=== PATIENT | male | born 1955 | race Caucasian/White ===

== ENCOUNTER 2018-06-09 11:06 | Outpatient (CLI) | payer BC, SELFPAY ==
[2018-06-09 12:54] LABS: Anion Gap 11.2 mmol/L (3-11); BUN 14 mg/dL (7-18); CO2 27.8 mmol/L (21.0-32.0); CREATININE 1.31 mg/dL (0.70-1.30); Calcium 9.1 mg/dL (8.5-10.1); Chloride 104 mmol/L (98-107); Cholesterol 175 mg/dL (50-200); Estimated GFR 55.44 (mL/min/1.73m2); Glucose 108 mg/dL (70-100); HDL Cholesterol 51 mg/dL (40-60); LDL CHOLESTEROL 103 mg/dL (<100); Potassium 4.3 mmol/L (3.5-5.1); Sodium 143 mmol/L (136-145); Triglyceride 95 mg/dL (30-150)
== END 2018-06-09 11:26 ==
PROVIDERS: PCP Family Medicine; Visit Provider Family Medicine
DX: I10 Essential (primary) hypertension (principal); E78.5 Hyperlipidemia, unspecified
CPT/HCPCS: 36415; 80048; 80061; 83721

== ENCOUNTER 2019-04-03 09:00 | Outpatient (CLI) | payer BC, SELFPAY ==
[2019-04-03 11:10] LABS: Anion Gap 5.1 mmol/L (3-11); BUN 15 mg/dL (7-18); CO2 30.9 mmol/L (21.0-32.0); Chloride 104 mmol/L (98-107); Glucose 101 mg/dL (70-100); Potassium 4.1 mmol/L (3.5-5.1); Sodium 140 mmol/L (136-145)
[2019-04-03 11:31] LABS: Calcium 8.1 mg/dL (8.5-10.1)
== END 2019-04-03 09:20 ==
PROVIDERS: PCP Family Medicine; Visit Provider Family Medicine
DX: I10 Essential (primary) hypertension (principal)
CPT/HCPCS: 36415; 80048

== ENCOUNTER 2019-04-09 01:13 | Outpatient (CLI) | payer BC, SELFPAY | END 2019-04-09 01:33 | PROVIDERS: PCP Family Medicine; Visit Provider Family Medicine | DX: I48.91 Unspecified atrial fibrillation (principal) | CPT/HCPCS: 93225 ==

== ENCOUNTER 2019-04-11 12:03 | Outpatient (CLI) | payer BC, SELFPAY ==
--- NOTE | 2019-04-12 05:23 | HOLTER_ITS ---
HOLTER MONITOR DATE OF DICTATION April 11, 2019 STUDY INDICATION Atrial fibrillation. REQUESTING PROVIDER Not available. FINDINGS The patient was monitored for 1 day and 23 minutes. Baseline sinus rhythm. Average heart rate 67 beats per minute, range 50 to 98 beats per minute. Rare PVCs, 97 per day. No VT. Rare PACs, 86 per day. 3 Atrial runs, longest 6 beats, fastest 147 beats per minute. No pauses greater than 3 seconds. No higher degree heart block. No patient events. FINAL INTEPRETATION Rare atrial arrhythmias, asymptomatic. Linwood Galvez M.D. CLAUDIA/kusum T - 04/12/2019
== END 2019-04-11 12:23 ==
PROVIDERS: PCP Family Medicine; Visit Provider Family Medicine
DX: I48.91 Unspecified atrial fibrillation (principal)
CPT/HCPCS: 93226

== ENCOUNTER 2019-05-08 13:51 | Outpatient (CLI) | payer BC, SELFPAY ==
--- NOTE | 2019-05-08 13:00 | DI.RAD_ITS ---
EXAM: XR THORACIC SPINE COMPLETE INDICATION: thoracic pain M54.6. COMPARISON: CERV SP.WITH OBL OR FLEX/EXT from 03/31/2011 THORACIC SPINE from 03/31/2011 PORTABLE CHEST ONE VIEW from 04/10/2016 TECHNIQUE: 2D digital imaging was performed. FINDINGS: Is no evidence compression fracture. The alignment appears normal. There are minimal changes in th e upper to mid thoracic spine. The visualized portions of the lungs appear clear. The aorta is mild ly tortuous IMPRESSION: Mild degenerative changes.
== END 2019-05-08 14:11 ==
PROVIDERS: PCP Family Medicine; Visit Provider Family Medicine
DX: M54.6 Pain in thoracic spine (principal); M47.812 Spondylosis without myelopathy or radiculopathy, cervical region
CPT/HCPCS: 72072

== ENCOUNTER 2019-05-11 02:53 | Outpatient (CLI) | payer BC, SELFPAY ==
--- NOTE | 2019-05-29 10:50 | W.ZIOMONITOR ---
[employer] Consultant Note: The patient was monitored for a period of 12 days and 23 hours. Predominant rhythm was sinus, average heart rate 67/minute There was no atrial fibrillation There were rare atrial and ventricular ectopic beats There were 3 runs of nonsustained ventricular tachycardia, longest lasting 12 beats There were multiple runs of supraventricular tachycardia, longest 10.9 seconds There were no pauses or bradydysrhythmias Date of service: 05/29/19 Time of Service: 10:51
== END 2019-05-11 03:13 ==
PROVIDERS: PCP Family Medicine; Visit Provider Family Medicine
DX: I48.91 Unspecified atrial fibrillation (principal); I47.2 Ventricular tachycardia; I47.1 Supraventricular tachycardia
CPT/HCPCS: 0296T

== ENCOUNTER 2019-07-16 01:01 | Outpatient (CLI) | payer BC, SELFPAY ==
--- NOTE | 2019-07-16 13:30 | DI.US_ITS ---
APPROVED REPORT EXAM: Comprehensive 2D, Doppler, and color-flow Echocardiogram Patient Location: Out-Patient Plastic Cutter: Chelsie Bridges RDCS (AE) Rhythm: NSR Indications: left sided TIA G45.9 Conclusion Left Ventricle : The left ventricle is normal size. There is normal left ventricular wall thickness. Left ventricular systolic function is normal. There is normal LV segmental wall motion. LVEF is est imated to be 60-65%. The left ventricular diastolic function is normal. Right Ventricle : The right ventricle is normal size. The right ventricular systolic function appears normal. Atria : The left atrium size is normal. The right atrium size is normal. Aortic Valve : Aortic valve is trileaflet with mild sclerosis. No aortic regurgitation is present. Th ere is no aortic valvular stenosis. Mitral Valve : Trace mitral regurgitation. Mitral valve leaflets are mildly thickened. No evidence of mitral valve stenosis. Tricuspid Valve : The tricuspid valve leaflets are mildly thickened , but open well. Mild to moderate tricuspid regurgitation. Great Vessels : The IVC is mildly dilated in size, but collapses >50% with inspiration. Estimated RV SP is 35-43 mmHg. There is no cardiovascular source of thrombus visualized on these images. There is no change from prior echocardiogram dated 04/13/2016. Wall motion Left Ventricle The left ventricle is normal size. Left ventricular systolic function is normal. There is normal left ventricular wall thickness. There is normal LV segmental wall motion. The left ventricular diastolic function is normal. LVEF is estimated to be 60-65%. Right Ventricle The right ventricle is normal size. The right ventricular systolic function appears normal. Atria The left atrium size is normal. The right atrium size is normal. Aortic Valve Aortic valve is trileaflet with mild sclerosis. There is no aortic valvular stenosis. No aortic regur gitation is present. Mitral Valve Mitral valve leaflets are mildly thickened. No evidence of mitral valve stenosis. Trace mitral regurg itation. Tricuspid Valve The tricuspid valve leaflets are mildly thickened , but open well. Mild to moderate tricuspid regurgi tation. Pulmonic Valve Pulmonic valve is not well visualized. Great Vessels Aortic root is mildly dilated (3.8cm). The ascending aorta is mildly dilated (3.8cm). The IVC is mild ly dilated in size, but collapses >50% with inspiration. Estimated RVSP is 35-43 mmHg. Pericardium There is no pericardial effusion. 2D Dimensions IVSd 1.05 cm M: 0.6-1.2 LV EDV A2C 120.00 mL PWd 0.95 cm M: 0.6 - 1.2 LV EDV A4C 124.20 mL LVDd 5.15 cm M: 4.2 - 5.8 LA Volume Index A2C 29.01 mL/m2 LVDs 3.25 cm M: 2.5 - 4.0 LA Volume Index A4C 29.67 mL/m2 Aortic Root 3.80 cm M: 3.1 - 3.7 LA Volume Index Biplane 29.40 mL/m2 RA Area A4C 18.80 cm2 LA Area A4C 20.43 cm2 LVOT 2.30 cm (M/F) 1.5-2.5 LA Area A2C 20.16 cm2 Ascending Aorta 3.84 cm M: 2.6 - 3.4 EF AP4 67.15 % LVEF (Teich) 66.15 % EF AP2 67.42 % LVEF (Song's) 66.14 % M: 52 - 72 EF BP 66.14 % LV Volume 95.14 mL M: 62 - 150 LV Volume Index 43.44 mL/m2 M: 34 - 74 FS 36.70 % LV Diastology E/A Ratio 1.3 MED E' 0.11 (>0.07 m/s) LV E/e MED 8.50 (<14) LAT E' 0.11 (>0.1 m/s) LV E/e LAT 8.30 (<14) Pulm Vein s 0.77 m/s PV S/D Ratio 1.26 Pulm Vein d 0.61 m/s Pulm Vein a 0.41 m/s A-A Duration 157.47 msec Aortic Valve LVOT Area 4.30 cm2 LVOT Peak Mani. 1.10 m/s LVOT Mean Mani. 0.89 m/s LVOT Peak Gr. 5.05 mmHg CHHAYA Vmax Index 1.30 cm2/m2 LVOT Mean Gr. 3.35 mmHg LVOT VTI 0.20 m CHHAYA Mean Mani. Index 1.41 cm2/m2 AoV Peak Mani. 1.69 (0.5-1.3 m/s) AoV Mean Mani. 1.23 m/s AO Peak GR. 11.49 mmHg AO Mean GR. 6.72 (<5 mmHg) VTI Ratio 0.63 CHHAYA (VTI) 2.69 (2.5-4.5 cm2) CHHAYA (VTI) Index 1.23 cm/m2 Mitral Valve MV E Max Mani. 0.91 (0.4-1.3 m/s) MV A Velocity 0.70 (0.4-1.3 m/s) E/A Ratio 1.22 MV Decel. Time 212.10 (160-240 msec) MV PHT 61.52 msec MVA PHT 3.55 cm2 Tricuspid Valve TR P. Velocity 2.97 m/s TV Regurg Vmax 2.97 m/s RAP Estimate 8.00 mmHg RVSP 43.00 mmHg TR P. Gradient 35.15 mmHg
== END 2019-07-16 01:21 ==
PROVIDERS: PCP Family Medicine; Visit Provider Family Medicine
DX: G45.9 Transient cerebral ischemic attack, unspecified (principal); I10 Essential (primary) hypertension; I48.91 Unspecified atrial fibrillation; I36.1 Nonrheumatic tricuspid (valve) insufficiency
CPT/HCPCS: 93306

== ENCOUNTER 2020-01-29 02:44 | Outpatient (CLI) | payer BC, SELFPAY ==
[2020-01-29 11:04] LABS: TSH (W/Ref FT4) 2.01 uIU/mL (0.36-3.74); Vitamin B12 292 pg/mL (193-986)
== END 2020-01-29 03:04 ==
PROVIDERS: PCP Family Medicine; Visit Provider Psychiatry & Neurology Neurology
DX: R20.2 Paresthesia of skin (principal)
CPT/HCPCS: 36415; 82306; 82607; 84443

== ENCOUNTER 2020-07-30 02:28 | Outpatient (CLI) | payer BC, SELFPAY ==
[2020-07-30 12:47] LABS: Calculated LDL 114 mg/dL (<100); Cholesterol 199 mg/dL (<200); Glucose 98 mg/dL (74-106); HDL Cholesterol 53 mg/dL (40-60); Triglyceride 163 mg/dL (<150)
== END 2020-07-30 02:48 ==
PROVIDERS: PCP Family Medicine; Visit Provider Family Medicine
DX: E78.5 Hyperlipidemia, unspecified (principal); I10 Essential (primary) hypertension; R73.9 Hyperglycemia, unspecified
CPT/HCPCS: 36415; 80061; 82947; 82565

== ENCOUNTER 2020-08-06 04:56 | Outpatient (CLI) | payer BC, SELFPAY ==
[2020-08-06 08:16] LABS: HCT 48.3 % (40.0-50.0); MCH 28.8 pg (27.0-33.0); MCHC 33.1 % (32.0-36.0); MCV 86.9 fL (80-95); MPV 9.3 fL (8.0-11.0); Platelet Count 203 10^3/uL (130-400); RBC 5.56 10^6/uL (4.36-5.78); RDW-SD 38.7 fL; WBC 5.89 10^3/uL (4.4-10.8)
== END 2020-08-06 05:16 ==
PROVIDERS: PCP Family Medicine; Visit Provider Family Medicine
DX: D64.9 Anemia, unspecified (principal)
CPT/HCPCS: 36415; 85027

== ENCOUNTER 2020-08-15 04:24 | Outpatient (CLI) | payer BC, SELFPAY ==
--- NOTE | 2020-08-15 07:00 | DI.US_ITS ---
EXAM: US RENAL CLINICAL HISTORY: left flank pain,R10.9 TECHNIQUE: Ultrasound of both kidneys performed using standard protocol. COMPARISON: US US ECHOCARDIOGRAM from 07/16/2019 FINDINGS: RIGHT KIDNEY: Measures 11.4 cm in length. No cysts evident. Normal cortical thickness and corticomedullary differen tiation .No solid masses No intrarenal calculi nor hydronephrosis. LEFT KIDNEY: Measures 11.7 cm in length. No cysts evident. Normal cortical thickness and corticomedullary differe ntiaion. No solids masses. No intrarenal calculi nor hydonephrosis. URINARY BLADDER: Prevoid volume is 85 cc Postvoid volume is 9 cc Prostate volume= 81 cc the prostate is lobulated and partially calcified No evidence of bladder mass nor diverticuli. Ureterovesical jets: Both identified and appear symmetrical IMPRESSION: 1. No significant ultrasound findings in the kidneys. 2. Bladder findings as above. Apparently scanning of an area of clinical concern on the patient's back did not reveal subcutaneous nor muscular focal findings at this level. DATA REPOSITORY:
== END 2020-08-15 04:44 ==
PROVIDERS: PCP Family Medicine; Visit Provider Family Medicine
DX: R10.9 Unspecified abdominal pain (principal)
CPT/HCPCS: 76770

== ENCOUNTER 2020-09-22 02:17 | Outpatient (CLI) | payer BC, SELFPAY ==
--- NOTE | 2020-09-22 08:00 | DI.RAD_ITS ---
EXAM: XR LUMBAR SPINE COMPLETE CLINICAL HISTORY: rt leg pain and weakness,acute low back pain, m54.5. TECHNIQUE: 2D digital imaging was performed. COMPARISON: CR XR THORACIC SPINE COMPLETE from 05/08/2019 FINDINGS: There is no evidence of compression fracture nor osseous lesions. There is mild disc space narrowing at L2 two-three level and mild retrolisthesis of L2 upon L3. Other disc spaces exhibit normal heigh t although there is mild anterior osseous lipping at L3-4 and L1-2 evident. There are no osseous les ions. Bone density appears normal. There is some degenerative change evident in the facet joints at L3-4 level. The sacroiliac joints appear unremarkable. There is no significant scoliosis. No osse ous lesions. IMPRESSION: Degenerative disc disease as described above. DATA REPOSITORY: RADIATION DOSE DELIVERED:
== END 2020-09-22 02:18 ==
PROVIDERS: PCP Family Medicine; Visit Provider Family Medicine
DX: M54.5 Low back pain (principal); M79.604 Pain in right leg; M51.36 Other intervertebral disc degeneration, lumbar region
CPT/HCPCS: 72110

== ENCOUNTER 2020-10-14 22:19 | Outpatient (REF) | payer BC, SELFPAY ==
[2020-10-14 21:50] LABS: CREATININE 1.2 mg/dL (0.70-1.30)
== END 2020-10-14 22:20 | disposition home or self-care (01) ==
LOC: LBN 22:19
PROVIDERS: PCP Family Medicine; Visit Provider Family Medicine
DX: I10 Essential (primary) hypertension (principal)
CPT/HCPCS: 82565

== ENCOUNTER 2020-10-23 02:19 | Outpatient (CLI) | payer BC, SELFPAY ==
[2020-10-23] MEDS: Omnipaque 350 MG/ML 100 ML BTL IJ (09:10)
[2020-10-23] MEDS: Normal Saline - Diluent 50 ML VIAL IV (09:11)
[2020-10-23] MEDS: Normal Saline Flush 10 ML SYR IVP (09:20)
--- NOTE | 2020-10-23 09:21 | DI.CT_ITS ---
EXAM: CT ABDOMEN W CLINICAL HISTORY: abd pain,r10.9. TECHNIQUE: Imaging Protocol: Axial computed tomography images with coronal and sagittal reformatted images were created and reviewed CONTRAST MATERIAL: Intravenous: Omnipaque 350 Contrast volume:100 ml Oral: Yes COMPARISON: Renal ultrasound 08/15/2020 was reviewed FINDINGS: ABDOMEN: Visualized lung bases are clear. No pleural effusions. There is a moderate-sized hiatal hernia. This measures 5 cm wide by 5.5 cm AP by 7 cm craniocaudal. LIVER: There are no focal hepatic lesions nor dilatation of intrahepatic ducts. GALLBLADDER/BILIARY: No obvious gallbladder pathology. CBD is not dilated. PANCREAS: No evidence of pancreatic mass nor dilatation of the pancreatic duct. SPLEEN: Spleen size is upper-minimally prominent. The splenic and portal veins are patent. ADRENALS: There are no significant adrenal masses. KIDNEYS: Right kidney appears unremarkable. There is a nonobstructive 4 millimeter calculus at the mi dpole level of the left kidney. No hydronephrosis. No hydroureter. No solid renal masses.. ABDOMINAL AORTA: Not enlarged. However, please note the aorta was not imaged all the way down to the bifurcation. LYMPH NODES: There is no retroperitoneal nor para-aortic adenopathy. No obvious mesenteric masses. ABDOMINAL WALL/GI: No evidence of significant anterior abdominal wall hernia. No obvious bowel obstr uction. OSSEOUS: No significant osseous lesions identified in the field of view of this abdomen only study. OTHER: No evidence of subcutaneous soft tissue masses in the field of view of this study. IMPRESSION: 1. No significant subcutaneous masses in the field of view of this study, realizing that this is an a bdomen only study and that the lowermost images are at the iliac crest level. 2. There is a nonobstructive solitary 4 millimeter calculus in left kidney. No other significant dwain l findings. No hydronephrosis. 3. Hiatal hernia noted measuring 5 x 5.5 x 7 cm. 4. Spleen size is upper normal-minimally prominent. There is no ascites nor lymphadenopathy evident i n the abdomen. RADIATION DOSE DELIVERED: 532.5mGy.cm Total DLP DATA REPOSITORY: All CT scans at this facility are submitted to the National Radiology Data Registry (NRDR) Dose Index Registry (DIR) with the [employer] (ACR). RADIATION OPTIMIZATION: All CT scans at this facility use at least one of these dose optimization te chniques: automated exposure control; mA and/or kV adjustment per patient size (includes targeted exa ms where dose is matched to clinical indication); or iterative reconstruction.
== END 2020-10-23 02:39 ==
PROVIDERS: PCP Family Medicine; Visit Provider Family Medicine
DX: R10.9 Unspecified abdominal pain (principal); N20.0 Calculus of kidney; K44.9 Diaphragmatic hernia without obstruction or gangrene; R16.1 Splenomegaly, not elsewhere classified
CPT/HCPCS: 74160; J3490

== ENCOUNTER 2021-01-12 00:59 | Outpatient (CLI) | payer BC, SELFPAY ==
--- NOTE | 2021-01-12 07:14 | DI.NM_ITS ---
APPROVED REPORT Exam: Exercise Treadmill Patient Location: Out-Patient Room/Bed: Stress Nurse: Anabel Hilliard RN Ordering Provider:DOROTEO MANLEY, Contact Number: [phone] BMI: 31.93 Baseline Rhythm: Sinus Bradycardia Comment: Occasional PACs Indications: Episodes of nausea/sweating w/ SOB, chest pain Medical History Medical History: Hypertension, hyperlipidemia, prediabetes, obesity, gerd, paroxysmal Afib, VTach, TI A (2019) Cardiac Medications: Diltiazem, atorvastatin, apixaban, famotidine, magnesium oxide, spironolactone Allergies: Lisinopril Cardiac Risk Factors: Hypertension, hyperlipidemia, prediabetes, obesity, family hx Previous Cardiac Procedures: None Pretest Chest Pain Characteristics: None Exercise History: Physically active Physical Disabilities: None Lung Sounds: Clear to auscultation, Clear to auscultation Heart Sounds: Regular Stress Test Details Test: Exercise stress testing was performed using a Paolo protocol. Nuclear Acquisition: Rest Tc-99m/Stress Tc-99m 1 day Rest Isotope: Tc-99m Sestamibi. Dose: 12.0 Date: 01/12/2021 Injection Time: 0945 Stress Isotope: Tc-99m Sestamibi. Dose: 38.0 Date: 01/12/2021 Injection Time: 1123 HR Resting HR Supine: 53 bpm Max Heart Rate (APMHR): 155 bpm Resting HR Standin bpm Target HR (85% APMHR): 131 bpm Max HR Achieved: 154 bpm % of APMHR: 99 Recovery HR: 77 bpm HR response to stress: Normal HR response to stress BP Resting BP Supine: 136/80 mmHg Resting BP Standin/82 mmHg Max BP: 158/72 mmHg Recovery BP: 142/80 mmHg BP response to stress: Blunted blood pressure response to stress. ECG Resting ECG: Sinus Bradycardia Ectopy: Occasional PACs Comment: Flipped T waves lead III and V6 Stress ECG: Sinus Tachycardia ST Change: Horizontal ST depression Lead(s): II Stage: [address] Deviation: 0.5 mm Arrhythmia: Occasional PACs Recovery ECG: Sinus Rhythm Recovery ST Change: No significant ST segment changes noted Recovery Arrhythmia: PACs, multifocal PVCs, Comment: Flipped T waves lead III and V6 Clinical Reason for Termination: Fatigue Stress Symptoms: General Fatigue Exercise duration: 10 min26 sec Highest Stage Reached: Stage 4: 4.2 mph at 16% grade. Exercise capacity: 12.51 METs Rate Pressure Product: 21713 Stress ECG Conclusion 1. The patient exercised for 10 minutes (13 METS). Exercise was stopped due to fatigue. 2. Blood pressure and heart rate augmented appropriately. 3. Patient had 0.[address] depressions in lead V2 during peak exercise. He is quickly resolved. Stress Test Summary STAGE Time (mins) Speed (mph) Grade (%) HR BP SYMPTOMS METS Supine 53 136/80 Standing 59 130/82 1 3 1.7 10 90 148/78 SpO2 96% 4.6 2 6 2.5 12 110 144/78 SpO2 98% 7 3 9 3.4 14 132 10.2 4 12 4.2 16 152 12.9 1 min recovery 126 158/72 SpO2 97% 3 min recovery 81 150/74 6 min recovery 77 142/80 MPI Conclusion Ejection fraction was 56% with stress. There were no wall motion abnormalities. There is no evidence of ischemia on the imaging portion exam. This represents a normal SPECT stress test.
== END 2021-01-12 01:19 ==
PROVIDERS: PCP Family Medicine; Visit Provider Family Medicine
DX: R07.9 Chest pain, unspecified (principal); I10 Essential (primary) hypertension; R73.03 Prediabetes; I48.0 Paroxysmal atrial fibrillation; E66.9 Obesity, unspecified; E78.5 Hyperlipidemia, unspecified; Z82.49 Family history of ischemic heart disease and other diseases of the circulatory system
CPT/HCPCS: 78452; 93017

== ENCOUNTER 2021-01-14 03:27 | Outpatient (CLI) | payer BC, SELFPAY ==
[2021-01-14 08:30] LABS: ESR 2 mm/hr (0-20)
[2021-01-14 09:45] LABS: C-Reactive Protein 0.16 mg/dL (0.0-0.3)
[2021-01-15 11:09] LABS: Lyme Ab w Rflx to Lyme Confirm Negative (Negative)
== END 2021-01-14 03:28 | disposition home or self-care (01) ==
LOC: LBO 03:27
PROVIDERS: PCP Family Medicine; Visit Provider Family Medicine
DX: M79.662 Pain in left lower leg (principal); M25.59 Pain in other specified joint
CPT/HCPCS: 36415; 85652; 86140; 86618

== ENCOUNTER 2021-08-21 01:15 | Outpatient (CLI) | payer BC, MEDICARE, SELFPAY ==
--- NOTE | 2021-08-21 07:00 | DI.MRI_ITS ---
Exam(s) MR LUMBAR SPINE WO EXAM: MR LUMBAR SPINE WO CLINICAL HISTORY: persistent left sciatica, despite 6 weeks of PT,LT LEG PAIN,M79.605. TECHNIQUE: Multiplanar multisequence MRI of the Lumbar spine was performed. COMPARISON: CR XR LUMBAR SPINE COMPLETE from 09/22/[address] ABDOMEN W from 10/23/2020 FINDINGS: Bones: The last intervertebral disc space is designated the L5/S1 level for the numbering purpose of this examination. The vertebral body heights are well maintained. Alignment is satisfactory. The ma rrow signal characteristics are unremarkable. There is no disc herniation at any level. Cord: The conus tip ends at the T12 level. It is of normal size and signal intensity. T12-L1: No disc herniations or bulges are present. No central spinal canal or neural foraminal stenos is. L1-2: No disc herniations or bulges are present. No central spinal canal or neural foraminal stenosis . L2-3: Minimal disc bulging and small endplate osteophytes, eccentric toward the right.. No central s robb canal or neural foraminal stenosis. L3-4: Minimal disc bulging and small endplate osteophytes, eccentric toward the left.. No central sp inal canal stenosis.Mild neural foraminal encroachment. L4-5: No disc herniations or bulges are present. No central spinal canal or neural foraminal stenosis . L5-S1: No disc herniations or bulges are present. No central spinal canal or neural foraminal stenosi s. Soft tissues: The visualized SI joints and sacrum are well maintained. The paraspinal soft tissues ar e unremarkable. IMPRESSION: Mild degenerative disc changes at L2-3 and L3-4. Mild left neural foraminal encroachment at L3-4. DATA REPOSITORY:
== END 2021-08-21 01:35 ==
PROVIDERS: PCP Family Medicine; Visit Provider Family Medicine
DX: M79.605 Pain in left leg (principal); M54.32 Sciatica, left side; M51.16 Intervertebral disc disorders with radiculopathy, lumbar region
CPT/HCPCS: 72148

== ENCOUNTER 2021-08-21 01:59 | Outpatient (CLI) | payer BC, SELFPAY ==
[2021-08-21 11:35] LABS: Anion Gap 9.2 mmol/L (3-11); BUN 18 mg/dL (7-18); CO2 28.8 mmol/L (21.0-32.0); CREATININE 1.2 mg/dL (0.70-1.30); Calcium 8.8 mg/dL (8.5-10.1); Calculated LDL 86 mg/dL (<100); Chloride 100 mmol/L (98-107); Cholesterol 161 mg/dL (<200); Glucose 97 mg/dL (74-106); HDL Cholesterol 56 mg/dL (40-60); Potassium 4.3 mmol/L (3.5-5.1); Sodium 138 mmol/L (136-145); Triglyceride 95 mg/dL (<150); Vitamin B12 1183 pg/mL (193-986)
[2021-08-24 05:31] LABS: Vitamin D 25 Total 41.1 ng/mL (30-100)
== END 2021-08-21 02:00 | disposition home or self-care (01) ==
LOC: LBO 01:59
PROVIDERS: PCP Family Medicine; Visit Provider Family Medicine
DX: E78.5 Hyperlipidemia, unspecified (principal); G40.909 Epilepsy, unspecified, not intractable, without status epilepticus; D64.9 Anemia, unspecified; E87.1 Hypo-osmolality and hyponatremia
CPT/HCPCS: 36415; 80048; 80061; 82306; 82607

== ENCOUNTER 2021-10-21 01:20 | Outpatient (CLI) | payer BC, SELFPAY ==
--- NOTE | 2021-10-21 | DI.US_ITS ---
Exam(s) US PAIN CLINIC NEEDLE GUIDANCE EXAM: PIRIFORMIS SYNDROME OF LT SIDE COMPARISON: US US RENAL from 08/15/2020 TECHNIQUE: Ultrasound performed using standard protocol. FINDINGS: Ultrasound guidance was provided during therapeutic injection the left piriformis muscle. Radiologis t was not present for procedure. IMPRESSION: DATA REPOSITORY:
[2021-10-21 10:45] VITALS: BP 127/80; PULSE 71; RESP 18; TEMP 36.6; O2SAT 97
--- NOTE | 2021-10-21 11:23 | PDOC.PAIN_ITS ---
Pain Clinic Procedure Note Procedure Note Procedure Note: ULTRASOUND GUIDED /LEFT PIRIFORMIS MUSCLE TRIGGER POINT INJECTION Pre-Procedural Evaluation: Curt Hernandez has been referred to the [facility] for an Ultrasound Guided left Piriformis muscle trigger point injection for a chief com plaint of left buttock and left leg pain. Pre-procedure Pain Score: 3/10 Patient was interviewed and the medical record reviewed. There were no medical, pharmacologic, radiographic, or other structural contraindications to preforming an ultrasound guided injection. Risks and expected side effects as well as potential benefits of the procedure were reviewed. The patient consent form was signed and witnessed. Standard time-out procedure was performed. The use of direct ultrasound visualization of the needle (rather than a non- guided injection) was required to increase patient safety by excluding inadvertent intramuscular, intratendinous, or intraneural needle placement and minimizing bleeding by avoiding osteochondral or vascular injury from the needle. Additionally, the increased accuracy of placement may increase clinical effectiveness and will allow higher diagnostic specificity when evaluating effectiveness of this injection. Procedure Description: The patient was placed in the PRONE position and automated blood pressure cuff and pulse oximeter applied for monitoring during the procedure and recorded in the medical record. Pre-injection ultrasound scanning of the area of interest was performed using linear transducer, identifying relevant anatomy, landmarks, and neurovascular structures allowing for optimal needle path. The site was then prepared in the usual sterile fashion, using thorough Chlorhexadine preparation of the skin and sterile draping. The same ultrasound transducer was then passed into the sterile field using sterile probe cover and sterile ultrasound gel. The injection target was again visualized. Skin and subcutaneous tissues were anesthetized with 2 mL of 1% Lidocaine. A 21G 3.5 Pajunk Ultrasound needle was placed under live ultrasound guidance, using an in-plane approach, to the target area. After visualization of the needle tip at the target area, 1.5 cc of Dexamethasone (10 mg/cc) was delivered after negative aspiration for blood. This was followed by 4 cc of Lidocaine (2%). Ultrasound images were captured and stored for documentation purposes. Post-procedure Pain Score:3/10 Vital signs were stable throughout the procedure and were as recorded in the docflowsheet by the nursing staff. Follow up plans and appointments were discussed with the patient.Post procedure instruction was given as documented in nursing documentation and having met discharge criteria, they were discharged from the [facility]. COMMENTS: I gave him handouts on piriformis stretching exercises. He will start this today and not start the strengthening exercises until he pain is much reduced. Landen Self DO, MPH [facility]
[2021-10-21 11:42] VITALS: PULSE 70; O2SAT 98
[2021-10-21] MEDS: Dexamethasone Sod. Phos./Pres-Free 10 MG/ML VIAL IJ (11:43)
[2021-10-21] MEDS: Lidocaine 2% Pres-Free 5 ML VIAL IJ (11:43)
== END 2021-10-21 01:40 ==
PROVIDERS: PCP Family Medicine; Visit Provider Preventive Medicine Occupational Medicine
DX: G57.02 Lesion of sciatic nerve, left lower limb (principal)
CPT/HCPCS: 20552; 76942

== ENCOUNTER 2022-01-03 20:23 | Emergency (ER) | payer BC, MEDICARE, SELFPAY ==
[2022-01-03 20:27] VITALS: BP 149/91; PULSE 82; RESP 16; TEMP 36.5; O2SAT 10
--- NOTE | 2022-01-03 20:30 | DI.CT_ITS ---
Exam(s) CT ABDOMEN PELVIS W EXAM: CT ABDOMEN PELVIS W CLINICAL HISTORY: left flank pain. TECHNIQUE: Imaging Protocol: Axial computed tomography images with coronal and sagittal reformatted images were created and reviewed CONTRAST MATERIAL: 100 cc Visipaque 320 IV. No oral contrast. COMPARISON: CT CT ABDOMEN W from 10/23/2020 FINDINGS: ABDOMEN: Lung Bases: Lungs clear. Stable appearance of hiatal hernia with prior fundoplication. Liver: Normal density. No measurable mass. Gallbladder and biliary tract: No radiodense calculus or dilation. Pancreas: Normal density, no abnormal calcifications or inflammatory process. Spleen: Normal. Kidneys: Normal size, contour and axis. Mild left hydronephrosis secondary to a 5 millimeter stone in the upper ureter. Additional 2 millimeter nonobstructing stone near the lower pole. No right sided calculi. No masses seen. Adrenal glands: No masses seen. Abdominal Aorta: Abdominal portion non-dilated. PELVIS: Bladder: No gross wall thickening. No calculi.No focal mass. Bowel: Diverticulosis sigmoid. No diverticulitis. No small bowel or gastric distension. No obstruc tion or bowel wall thickening. Appendix normal. Peritoneal cavity: No ascites, collection or mesenteric inflammatory response. . Bones: Within normal limits for age. Reproductive organs: Mildly enlarged prostate. Lymph nodes: Unremarkable. Impression: Mild left hydronephrosis secondary to a 5 millimeter stone in the upper left ureter. Additional 2 mi llimeter nonobstructing stone lower pole left kidney. RADIATION DOSE DELIVERED: 546.4 mGy.cm Total DLP DATA REPOSITORY: All CT scans at this facility are submitted to the National Radiology Data Registry (NRDR) Dose Index Registry (DIR) with the [employer] (ACR). RADIATION OPTIMIZATION: All CT scans at this facility use at least one of these dose optimization te chniques: automated exposure control; mA and/or kV adjustment per patient size (includes targeted exa ms where dose is matched to clinical indication); or iterative reconstruction.
[2022-01-03 20:42] LABS: Bilirubin Negative (Negative); Blood Large (Negative); Clarity Cloudy (Clear); Glucose Negative (Negative); Ketones Negative (Negative); Leukocyte Esterase Negative (Negative); Nitrite Negative (Negative); Specific Gravity >= 1.030 (1.005-1.025); Urobilinogen 0.2 EU/dL (Up TO 0.2); pH 5.5 (5-8)
[2022-01-03] MEDS: Tamsulosin 0.4 MG CAPCR PO (20:45)
[2022-01-03] MEDS: Ondansetron 4 MG/2 ML VIAL IVP (20:46)
[2022-01-03] MEDS: HYDROmorphone 2 MG/ML VIAL 1 MG IVP ×2 (20:46→21:49)
[2022-01-03 20:54] LABS: RBC >50 HPF (0-2)
[2022-01-03 20:55] LABS: C & S Indicated? Yes
[2022-01-03 20:56] LABS: Abs Immature Grans 0.02 10^3/uL (0.0-0.06); Absolute Basophil Count 0.06 10^3/uL (0.0-0.2); Absolute Eosinophil Count 0.01 10^3/uL (0.0-0.7); Absolute Lymphocyte Count 1.83 10^3/uL (1.2-3.4); Absolute Monocyte Count 0.89 10^3/uL (0.1-0.8); Absolute Neutrophil Count 5.63 10^3/uL (1.2-6.7); Basophils % 0.7; Eosinophils % 0.1; HCT 43.6 % (40.0-50.0); HGB 14.9 g/dL (13.5-17.5); Immature Grans % 0.2; Lymphocytes % 21.7; MCH 29.6 pg (27.0-33.0); MCHC 34.2 % (32.0-36.0); MCV 87 fL (80-95); MPV 9.4 fL (8.0-11.0); Monocytes % 10.5; Neutrophils % 66.8; Platelet Count 246 10^3/uL (130-400); RBC 5.03 10^6/uL (4.36-5.78); RDW 12.2 % (11.8-14.1); RDW-SD 38.8 fL; WBC 8.44 10^3/uL (4.4-10.8)
[2022-01-03 21:12] LABS: ALT 48 U/L (16-63); AST 41 U/L (15-37); Albumin 3.9 g/dL (3.4-5.0); Alkaline Phosphatase 148 U/L (46-116); Anion Gap 9.3 mmol/L (3-11); BUN 21 mg/dL (7-18); Bilirubin, Total 0.5 mg/dL (0.2-1.0); CO2 25.7 mmol/L (21.0-32.0); CREATININE 1.5 mg/dL (0.70-1.30); Calcium 9.2 mg/dL (8.5-10.1); Chloride 101 mmol/L (98-107); Estimated GFR 46.82 (mL/min/1.73m2); Glucose 116 mg/dL (74-106); Lipase 137 U/L (73-393); Potassium 4.5 mmol/L (3.5-5.1); Sodium 136 mmol/L (136-145); Total Protein 7.4 g/dL (6.4-8.2)
[2022-01-03] MEDS: Normal Saline Flush 10 ML SYR IVP (21:30)
--- NOTE | 2022-01-03 21:42 | W.ED.GENAD ---
Discharge Plan Discharge Details Chief Complaint: FlankPain Primary Care Provider: Sergey Menjivar ED Provider: Carmella Almanzar Home Meds and New Rx's Prescriptions: New hydromorphone [Dilaudid] 2 mg tablet 2 mg PO Q4H PRNQty: 7 0RF tamsulosin [Flomax] 0.4 mg capsule 0.4 mg PO DAILY Qty: 6 0RF metoclopramide HCl [Reglan] 10 mg tablet 10 mg PO Q6H PRNQty: 7 0RF Continued magnesium oxide 500 mg tablet 500 mg PO DAILY cholecalciferol (vitamin D3) [Vitamin D3] 50 mcg (2,000 unit) tablet 50 mcg PO DAILY famotidine 20 mg tablet 20 mg PO BID PRN Label Comments: Pt reports no longer taking 10/21/21 spironolactone [Aldactone] 50 mg tablet 50 mg PO DAILY Qty: 90 3RF atorvastatin 20 mg tablet 20 mg PO QPM Qty: 90 3RF diltiazem HCl 120 mg capsule,extended release 24hr 120 mg PO DAILY Qty: 90 3RF diltiazem HCl 120 mg tablet 120 mg PO TID PRN (Reason: afib) Qty: 30 2RF Rx Instructions: Take for atrial fibrillation with heart rate greater than 130 acetaminophen [Mapap Extra Strength] 500 MG tablet 1 tab PO PRN PRN Held gabapentin 300 mg capsule 300 mg PO BID Qty: 60 5RF Hold Instructions: Resume on 01/06/22. Rx Instructions: dose increase 08/27/21 Discontinued tramadol 50 mg tablet 50 mg PO Q8H MDD 3 tabs PRN (Reason: flank pain) Qty: 10 0RF No Action Eliquis 5 mg tablet 5 mg PO BID Qty: 180 0RF Discharge Instructions Additional Instructions: Take Reglan as needed for nausea and vomiting Have given you a prescription for Zofran prescription for tonight which you can take for nausea and vomiting Take the Dilaudid as needed for pain This medication is very addictive and you should not drive for 8 hours after taking an Use caution while taking this medication but I do recommend you using it for pain control over the course of the next 24 to 48 hours Use Flomax daily, you received a dose this evening Strain your urine Increase your fluid hydration Follow-up with the urologist listed below Return with fever, chills, or should he have new or worsening complaints Skip your Neurontin for the next several days while you are taking the Dilaudid Referrals: Yury Saenz MD [ [facility]AFF PHYSICIAN] - Sergey Menjivar MD [Primary Care Provider] - Discharge Data Discharge Date/Time-TO BE ENTERED AT DEPARTURE: 01/03/22 23:28 Medical Decision Making Patient appears symptomatically improved CT scan shows obstructive uropathy on labs without evidence of secondary infection, afebrile Given strainer, Dilaudid for home Referral to urology Evidence of herniation of Marcia fundoplication, prior history of hiatal hernia This does not appear to be grossly changed patient is not symptomatic with this. Referred back to his surgeon Return precautions discussed and patient expressed understanding HPI General Date/Time Provider Initiated Documentation: 01/03/22 20:25. HPI Narrative: 66-year-old gentleman with a history of A. fib, anticoagulated on Eliquis presents with report of left flank pain started on Tuesday. Its been intermittent. He has had nausea without vomiting. States he has a history of kidney stones, he states this feels differently. He states the pain radiated from his left flank into his groin. He denies any fever or chills. The pain escalated again this evening approximately an hour prior to arrival. He took 3 Tylenol prior to assessment. He denies any additional complaints at this time. Denies known exacerbating or alleviating factors. States the pain is sharp. Denies any chest pain or shortness of breath. Related Data Home Medications Medication Instructions Recorded Confirmed acetaminophen 500 mg tablet (Mapap 1 tab PO PRN PRN 08/07/14 01/06/22 Extra Strength) famotidine 20 mg tablet 20 mg PO BID PRN 06/22/19 01/06/22 cholecalciferol (vitamin D3) 50 50 mcg PO DAILY 02/20/20 01/06/22 mcg (2,000 unit) tablet (Vitamin D3) magnesium oxide 500 mg tablet 500 mg PO DAILY 02/20/20 01/06/22 atorvastatin 20 mg tablet 20 mg PO QPM #90 tabs 11/10/20 01/06/22 diltiazem HCl 120 mg 120 mg PO DAILY Atrial fib #90 caps 04/07/21 01/06/22 capsule,extended release 24 hr gabapentin 300 mg capsule 300 mg PO BID #60 caps 08/27/21 01/06/22 diltiazem HCl 120 mg tablet 120 mg PO TID PRN afib #30 tab-caps 22 01/06/22 spironolactone 50 mg tablet 50 mg PO DAILY #90 tabs 11/03/21 01/06/22 (Aldactone) hydromorphone 2 mg tablet 2 mg PO Q4H PRN #7 tabs 01/03/22 01/06/22 (Dilaudid) metoclopramide HCl 10 mg tablet 10 mg PO Q6H PRN #7 tabs 01/03/22 01/06/22 (Reglan) tamsulosin 0.4 mg capsule (Flomax) 0.4 mg PO DAILY #6 caps 01/03/22 01/06/22 apixaban 5 mg tablet (Eliquis) 5 mg PO BID #180 tabs 01/05/22 01/06/22 Previous Rx's Medication Instructions Recorded atorvastatin 20 mg tablet 20 mg PO QPM #90 tabs 11/10/20 diltiazem HCl 120 mg 120 mg PO DAILY Atrial fib #90 caps 04/07/21 capsule,extended release 24 hr gabapentin 300 mg capsule 300 mg PO BID #60 caps 08/27/21 diltiazem HCl 120 mg tablet 120 mg PO TID PRN afib #30 tab-caps 10/22/21 spironolactone 50 mg tablet 50 mg PO DAILY #90 tabs 11/03/21 (Aldactone) hydromorphone 2 mg tablet 2 mg PO Q4H PRN #7 tabs 01/03/22 (Dilaudid) metoclopramide HCl 10 mg tablet 10 mg PO Q6H PRN #7 tabs 01/03/22 (Reglan) tamsulosin 0.4 mg capsule (Flomax) 0.4 mg PO DAILY #6 caps 01/03/22 apixaban 5 mg tablet (Eliquis) 5 mg PO BID #180 tabs 01/05/22 Allergies Allergy/AdvReac Type Severity Reaction Status Date / Time lisinopril AdvReac Intermediate COUGH Verified 01/03/22 20:31 General Stated Complaint: FlankPain GERARDO: 3 Review of Systems All systems reviewed & are unremarkable except as noted in HPI and below PFSH All Active Problems (Updated 01/07/22 @ 05:31 by Sergey Menjivar MD) Abnormal LFTs (Acute) Piriformis syndrome of left side (Acute) Diaphoresis (Acute) Arthralgia (Acute) Left leg pain (Acute) Left sided abdominal pain (Acute) Low back pain (Acute) Left flank pain (Acute) Paresthesias (Acute) Essential hypertension (Chronic) Generalized osteoarthrosis (Chronic) DJD-C spine; Gastroesophageal reflux disease (Chronic) Hyperlipidemia (Chronic) Obesity (Chronic) Paroxysmal atrial fibrillation (Chronic 04/16/16) Status post Marcia fundoplication (Acute) History of hemorrhoidectomy (Acute) and repair of anal fissure TIA (transient ischemic attack) (Acute) Left facial and left distal leg numbness and weakness lasting about 30 minutes Thoracic back pain (Acute) Pre-diabetes (Acute) Ventricular tachycardia (Chronic) Left lumbar radiculopathy (Acute) Atrial fibrillation with rapid ventricular response (Acute 03/25/00) Varicose veins of lower extremity (Chronic) Peripheral neuralgia (Chronic) Disorder characterized by back pain (Chronic) Family History Mother Uterine cancer Father , AGE 67 Essential hypertension Heart disease Hyperlipidemia Brother No problems noted. Maternal Grandfather , AGE 89 No problems noted. Paternal Grandfather , AGE 61 Heart disease Maternal Grandmother , AGE 93 No problems noted. Paternal Grandmother , AGE 61 Heart disease Stroke Brother Essential hypertension Heart disease STENT Brother Essential hypertension Hyperlipidemia Son No problems noted. Son No problems noted. Daughter No problems noted. 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 Pets and animals: Yes Pets and animals: cat(s) Sexually active: Yes Do you think of yourself as: straight/heterosexual Current gender identity: male What is your relationship status?: How often do you talk on the phone with friends or family?: three or more times per week How often do you get together with friends or relatives?: once per week How often do you attend sikhism or scientologist services?: 4 or more times per year Do you belong to any clubs or organized social groups?: yes Panel score (0-1 are the most socially isolated patients): 4 What type of physical activity do you participate in: walking Duration: 60-90 minutes/day Frequency: 5-6 times per week Rosemary/Presybeterian: Baptism Special rosemary needs: No Seatbelt use: always Helmet use: Yes Helmet use: always Drive intox or ride w/intox city route driver: No Do you feel safe at home: Yes Do you feel safe in your relationship?: Yes Exam Const General: cooperative and acute distress Eyes Sclera: sclerae normal Chest Chest: normal inspection of the chest Resp Effort & Inspection: normal respiratory effort Cardio Rate: regular rate Rhythm: regular rhythm Other: Distal pulses intact GI Other: Left flank tenderness, no abdominal bruit or pulsatile mass Skin General skin exam: no rashes or lesions noted Neuro General: patient alert and patient oriented x3 Extrem General: normal to inspection Other: Distal pulses intact Course Vital Signs Vital signs: Vital Signs Temperature 36.5 C 01/03/22 20:27 Pulse 82 01/03/22 20:27 Respiratory Rate 16 01/03/22 20:27 Blood Pressure 149/91 H 01/03/22 20:27 Pulse Oximetry 10 L 01/03/22 20:27 Temperature 36.5 C 01/03/22 20:27 Pulse 82 01/03/22 20:27 Respiratory Rate 16 01/03/22 20:27 Respiratory Effort Non-Labored 01/03/22 20:33 Blood Pressure 149/91 H 01/03/22 20:27 Pulse Oximetry 10 L 01/03/22 20:27 Pain Level 10 01/03/22 20:46 Lab/Test Results Lab/Test Results: 01/03/22 20:25 Urine - Reflex from Ua Urine Culture - Pending Laboratory Tests Range/Units 01/03/22 01/03/22 01/03/22 20:25 20:49 20:49 WBC (4.4-10.8) 10^3/uL 8.44 RBC (4.36-5.78) 10^6/uL 5.03 Hgb (13.5-17.5) g/dL 14.9 Hct (40.0-50.0) % 43.6 MCV (80-95) fL 87 MCH (27.0-33.0) pg 29.6 MCHC (32.0-36.0) % 34.2 RDW (11.8-14.1) % 12.2 Plt Count (130-400) 10^3/uL 246 MPV (8.0-11.0) fL 9.4 Immature Gran % 0.2 Neutrophils % 66.8 Lymphocytes % 21.7 Monocytes % 10.5 Eosinophils % 0.1 Basophils % 0.7 Nucleated RBC % (0.0-0.3) % 0.0 Absolute Neutrophils (1.2-6.7) 10^3/uL 5.63 Absolute Lymphocytes (1.2-3.4) 10^3/uL 1.83 Absolute Monocytes (0.1-0.8) 10^3/uL 0.89 H Absolute Eosinophils (0.0-0.7) 10^3/uL 0.01 Absolute Basophils (0.0-0.2) 10^3/uL 0.06 Sodium (136-145) mmol/L 136 Potassium (3.5-5.1) mmol/L 4.5 Chloride (98-107) mmol/L 101 Carbon Dioxide (21.0-32.0) mmol/L 25.7 Anion Gap (3-11) mmol/L 9.3 BUN (7-18) mg/dL 21 H Creatinine (0.70-1.30) mg/dL 1.5 H Estimated GFR/1.73 m2 (mL/min/1.73m2) 46.82 Glucose (74-106) mg/dL 116 H Calcium (8.5-10.1) mg/dL 9.2 Total Bilirubin (0.2-1.0) mg/dL 0.5 AST (15-37) U/L 41 H ALT (16-63) U/L 48 Alkaline Phosphatase (46-116) U/L 148 H Total Protein (6.4-8.2) g/dL 7.4 Albumin (3.4-5.0) g/dL 3.9 Lipase (73-393) U/L 137 Urine Color (Yellow) Yellow Urine Clarity (Clear) Cloudy Urine pH (5-8) 5.5 Ur Specific [place] (1.005-1.025) >= 1.030 H Urine Protein (Negative) mg/dL 30 H Urine Ketones (Negative) mg/dL Negative Urine Blood (Negative) Large H Urine Nitrite (Negative) Negative Urine Bilirubin (Negative) Negative Urine Urobilinogen (Up TO 0.2) EU/dL 0.2 Ur Leukocyte Esterase (Negative) Negative Urine RBC (0-2) HPF >50 H Urine WBC (0-5) HPF Ur Epithelial Cells Not Applicable Urine Crystals Not Applicable Urine Bacteria (Negative) HPF Urine Mucus Not Applicable Urine Other (Negative) Ur Culture Indicated? Yes Urine Glucose (Negative) mg/dL Negative
[2022-01-03 21:50] VITALS: BP 159/83; PULSE 61; RESP 16; O2SAT 95
--- NOTE | 2022-01-03 22:13 | DI.VRAD_ITS ---
PROCEDURE INFORMATION: Exam: CT Abdomen And Pelvis With Contrast Exam date and time: 01/03/2022 8:53 PM Age: 66 years old Clinical indication: Prior surgery; Surgery date: 6+ months; Surgery type: Marcia procedure; Patient HX: L flank pain, intermittent TECHNIQUE: Imaging protocol: Computed tomography of the abdomen and pelvis with contrast. Radiation optimization: All CT scans at this facility use at least one of these dose optimization techniques: automated exposure control; mA and/or kV adjustment per patient size (includes targeted exams where dose is matched to clinical indication); or iterative reconstruction. Contrast material: VISIPAQUE 320; Contrast volume: 100 ml; Contrast route: INTRAVENOUS (IV); COMPARISON: CT ABDOMEN W 10/23/2020 9:20 AM FINDINGS: Lungs: Lung bases clear. Liver: Possible fatty infiltration of the liver, difficult to confidently diagnose by CT imaging after administration of intravenous contrast. Gallbladder and bile ducts: Normal appearing gallbladder. No calcified gallstones. No biliary dilatation. Pancreas: Normal appearing pancreas. Spleen: Normal appearing spleen. Adrenal glands: Normal appearing adrenal glands. Kidneys and ureters: 3 mm x 4 mm obstructing stone in the proximal left ureter with upstream ureterectasis and moderate hydronephrosis. 2 mm x 2 mm nonobstructing left renal calculus, best demonstrated by the coronal series. Normal-appearing right kidney. No right-sided hydronephrosis. Stomach and bowel: Prior Marcia fundoplication. 5.2 cm x 4.2 cm hiatal hernia with herniation of the Marcia wrap above the diaphragmatic hiatus. No oral contrast. Stomach partially decompressed. No small bowel dilatation to suggest obstruction. Scattered colonic diverticula through the distal descending and sigmoid colon. No evidence of diverticulitis or colitis. Appendix: Normal appendix. Intraperitoneal space: No gross ascites or free air. Vasculature: Normal caliber abdominal aorta. Lymph nodes: No pathologically enlarged mesenteric, retroperitoneal, or pelvic sidewall lymph nodes. Urinary bladder: Normal appearing urinary bladder. Reproductive: Mildly enlarged prostate gland, 3.9 cm x 5.2 cm maximum axial dimension. Normal-appearing seminal vesicles. Bones/joints: No acute fracture seen among the bones of the abdomen or pelvis. Soft tissues: Tiny fat-containing ventral hernia at the umbilicus, doubtful clinical significance. IMPRESSION: 1. 3 mm x 4 mm obstructing proximal left ureteral calculus. 2. 2 mm x 2 mm nonobstructing left renal calculus. 3. Prior Marcia fundoplication. 5.2 cm x 4.2 cm hiatal hernia with the Marcia wrap herniated completely above the diaphragm. 4. Possible fatty infiltration of the liver, difficult to confidently diagnose by CT imaging after administration of intravenous contrast. Dictated and Authenticated by: Rl Craven MD. Ordering:PALAK Weir MD
[2022-01-03 22:29] VITALS: BP 152/84; PULSE 64; O2SAT 96
--- NOTE | 2022-01-03 22:52 | NUR.NOTE ---
Referral faxed to Dr Saenz for f/u of obstructing kidney stone.Nursing Note:
[2022-01-03] MEDS: HYDROmorphone 2 MG TAB 4 MG PO (23:02)
[2022-01-03] MEDS: Ondansetron O.D.T. 4 MG TABEF, 3 TABS/BTL PO (23:02)
== END 2022-01-03 23:28 ==
LOC: ER 20:36
PROVIDERS: Emergency Provider Physician Assistant; PCP Family Medicine
DX: R10.9 Unspecified abdominal pain (principal); R11.2 Nausea with vomiting, unspecified; Z87.442 Personal history of urinary calculi; I10 Essential (primary) hypertension
CPT/HCPCS: 80053; 83690; 96374; 96375; 96376; 99285; 74177; 81003; 81015; 85025; 87086; 99284; J2405

== ENCOUNTER 2022-03-16 07:41 | Outpatient (CLI) | payer BC, MEDICARE, SELFPAY ==
--- NOTE | 2022-03-16 06:00 | DI.RAD_ITS ---
Exam(s) XR PAIN CLINIC FLUORO JOINT IN EXAM: XR PAIN CLINIC FLUORO JOINT IN CLINICAL HISTORY: Dx: Ischial bursitis of left side TECHNIQUE: 2D and realtime digital imaging was performed. Radiologist not present. CONTRAST MATERIAL: None. COMPARISON: No exams were available for comparison FINDINGS: Fluoroscopy was provided for pain management therapy. Please refer to procedure report or details. Cumulative dose: Ka,r=4.43 mGy IMPRESSION: RADIATION DOSE DELIVERED:
[2022-03-16 07:57] VITALS: BP 133/84; PULSE 60; RESP 20; TEMP 36.7; O2SAT 97
[2022-03-16 08:36] VITALS: BP 129/73; PULSE 59; RESP 16; O2SAT 98
[2022-03-16] MEDS: methylPREDNISolone ACETATE 40 MG/ML VIAL IJ (08:46)
[2022-03-16] MEDS: Omnipaque 240 MG/ML 50 ML BTL IJ (08:47)
--- NOTE | 2022-03-16 10:57 | PDOC.PAIN_ITS ---
Pain Clinic Procedure Note Procedure Note Procedure Note: ISCHIOGLUTEAL BURSA INJECTION Curt Hernandez has been referred to the [facility] for an Ischiogluteal bursa injection. COMMENTS: He was previously evaluated in our clinic. His pre-procedure pain VAS was 5/10. Dx: Left Ischiogluteal bursitis Patient was interviewed and the medical record reviewed. There were no medical, pharmacologic, radiographic or other structural contraindications to attempting fluoroscopically guided right ischiogluteal bursa injection. Risks and expected side effects as well as potential benefit of the procedure were reviewed and voiced concerns addressed. The printed consent form was signed and witnessed. Standard time-out procedure was performed. Patient was placed in the prone position on the fluoroscopy table and automated blood pressure cuff and pulse oximeter applied. The skin entry point for approaching left ischiogluteal bursas was identified under the most advantageous fluoroscopic view and marked. Following thorough Chlorhexadine preparation of the skin and draping and 1% lidocaine infiltration of the skin entry point and subcutaneous tissues, a 22 gauge 3.5 spinal needle was placed under fluoroscopic guidance into the left ischiogluteal bursa was identified under the most advantageous fluoroscopic view and marked. Intra-bursal placement was confirmed by a clear bursogram resulting from the injection of 0.25ml Omnipaque 240, 1ml 1% lidocaine, and 40mg Depomedrol were injected into the bursa with an initial reproduction of a significant component of the usual pain. Vital signs were stable throughout the procedure and were as recorded in the docflowsheet by the nursing staff. If given, dosages of intravenous drugs for anxiolysis and analgesia were documented in MAR. Follow up plans and appointments were discussed with the patient. Post procedure instruction was given as documented in nursing documentation and having met discharge criteria, and was discharged from the [facility] Management [facility]. COMMENTS: Post-procedure pain was 0/10. He should begin easy stretching of the hamstring muscles. Landen Self DO, MPH [facility]Pain Management [facility] CC: Sergey Menjivar MD
== END 2022-03-16 07:42 | disposition home or self-care (01) ==
LOC: PC 07:42
PROVIDERS: PCP Family Medicine; Visit Provider Preventive Medicine Occupational Medicine
DX: M70.72 Other bursitis of hip, left hip (principal)
CPT/HCPCS: 20610; 77002; J1030; Q9967

== ENCOUNTER 2022-04-17 22:22 | Emergency (ER) | payer BC, SELFPAY ==
[2022-04-17 22:29] VITALS: BP 146/87; PULSE 78; RESP 16; TEMP 36.3; O2SAT 96
--- NOTE | 2022-04-17 22:45 | DI.CT_ITS ---
Exam(s) CT HEAD WO EXAM: CT HEAD WO CLINICAL HISTORY: head injury, anticoagulated. TECHNIQUE: Imaging Protocol: Axial computed tomography images with coronal and sagittal reformatted images were created and reviewed COMPARISON: CT CTA HEAD from 06/20/2019 FINDINGS: There are no skull fractures nor fluid in the visualized paranasal sinuses. Mild mucosal thickening in the right maxillary sinus noted. No associated fluid level. Remainder of the paranasal sinuses and mastoid air cells are clear. There is no evidence of intracranial hemorrhage, mass effect, or shift of midline structures. There are no extra-axial fluid collections. The ventricles are not enlarged or shifted and there is no blo od within the ventricular system nor within the basal cisterns. IMPRESSION: No acute intracranial findings on this noninfused CT scan of the brain. RADIATION DOSE DELIVERED: 848.9mGy.cm Total DLP DATA REPOSITORY: All CT scans at this facility are submitted to the National Radiology Data Registry (NRDR) Dose Index Registry (DIR) with the [employer] (A[employer]). RADIATION OPTIMIZATION: All CT scans at this facility use at least one of these dose optimization te chniques: automated exposure control; mA and/or kV adjustment per patient size (includes targeted exa ms where dose is matched to clinical indication); or iterative reconstruction.
--- NOTE | 2022-04-17 22:53 | W.ED.GENAD ---
Discharge Plan Disposition Patient Disposition: HOME Condition: Stable Discharge Details Clinical Impression: Laceration of scalp Primary Care Provider: Sergey Menjivar ED Provider: Sena Dunbar Home Meds and New Rx's Prescriptions: Continued magnesium oxide 500 mg tablet 500 mg PO DAILY cholecalciferol (vitamin D3) [Vitamin D3] 50 mcg (2,000 unit) tablet 50 mcg PO DAILY famotidine 20 mg tablet 20 mg PO BID PRN Label Comments: Pt reports no longer taking 10/21/21 gabapentin 300 mg capsule 300 mg PO BID Qty: 60 5RF Hold Instructions: Resume on 01/06/22. Rx Instructions: dose increase 08/27/21 diltiazem HCl 120 mg tablet 120 mg PO TID PRN (Reason: afib) Qty: 30 2RF Rx Instructions: Take for atrial fibrillation with heart rate greater than 130 atorvastatin 20 mg tablet 20 mg PO QPM Qty: 90 3RF Eliquis 5 mg tablet 5 mg PO BID Qty: 180 0RF diltiazem HCl 120 mg capsule,extended release 24hr See Rx Instructions .ROUTE .COMPLEX Qty: 90 3RF Dose Instruction: take 1 capsule by mouth once daily Rx Instructions: take 1 capsule by mouth once daily spironolactone [Aldactone] 50 mg tablet 100 mg PO DAILY Qty: 180 3RF Rx Instructions: dose increase acetaminophen [Mapap Extra Strength] 500 MG tablet 1 tab PO PRN PRN hydromorphone [Dilaudid] 2 mg tablet 2 mg PO Q4H PRNQty: 7 0RF tamsulosin [Flomax] 0.4 mg capsule 0.4 mg PO DAILY Qty: 6 0RF metoclopramide HCl [Reglan] 10 mg tablet 10 mg PO Q6H PRNQty: 7 0RF Discharge Instructions Instructions: Laceration (ED) Additional Instructions: Imaging is reassuring here today. No evidence of bleed within your head. Please keep your wound clean, dry, covered. Tylenol as needed for discomfort. Monitor for signs infection including redness, warmth, drainage, increased pain, fever/chills. If you develop fever or any/worsening symptoms please seek care urgently once again. May wash with running water and soap up with soap submerge. Please return in 1 week for suture removal. Tetanus was updated here today. Referrals: Sergey Menjivar MD [Primary Care Provider] - Discharge Data Discharge Date/Time-TO BE ENTERED AT DEPARTURE: 04/18/22 01:03 Medical Decision Making Patient is a pleasant 66-year-old male, brought in by his , with chief complaint of scalp laceration and head injury. He reports a prior to arrival he was walking near his camper when he accidentally struck his head against a beam. Denies falling or loss of consciousness. States that immediately he was dizzy but this is subsided. States his vision feels slightly blurred but this too is subsided. Patient is anticoagulated on apixaban for atrial fibrillation. Denies other injury at the time of the incident. On exam, patient appears nontoxic. He does have a 2.5 cm linear laceration to the scalp, just out of hairlie onto forehead. No active bleeding but wound looks like it may bleed and evidence of previous bleeding with dried blood noted. No evidence on eam for skull fractures. Neurologically intact. concerned, particular given anticoagulation, for possible return of scalp bleeding. Discussed closure of the scalp wound prior to imaging. With patients age and being anticoagulated , increased risk of ICH and recommended CT of head which patient and agree to. Patient and I discussed risks/benefits and expected procedural steps associated iwth suture closure of the wound. He voices understading and wishes to proceed. Please see procedure note. Wound did bleed easily as soon as patient/wound were moved. Hemostasis acheived with lido with epi and direct pressure. Wound then explored to base in bloodless field with no FB or debris noted. Wound irrigated. Closed with locking, running stitch. On wimple interupted stitch applied at medial aspect. Hemostasis achieved. Patient also reports that his pain has resolved with the application of the local anesthetic. Will now send for imaging. FINDINGS: Brain: No acute intracranial hemorrhage, mass-effect, midline shift, or extra-axial collection is seen. The rivera white matter differentiation appears preserved. Cerebral ventricles: The ventricular system and basilar cisterns appear appropriate in size and configuration. Paranasal sinuses: There is minimal mucoperiosteal thickening in the paranasal sinuses but no airfluid levels. Mastoid air cells: The mastoid air cells appear well-aerated. Auditory system: The middle ear cavities appear clear. Orbital cavities: The globes and intraorbital structures appear grossly intact. Bones/joints: The bony calvarium appears intact. No depressed skull fracture is seen. Soft tissues: There is a small left frontal scalp contusion. IMPRESSION: No acute intracranial hemorrhage or depressed skull fracture. Discussed with patient and his . Gave APAP for discomfort. Discussed wound care at depth. Strict return precautions discussed. He will return in one week for reevaluation and suture removal. All of their questions and concerns were addressed, they are in agreement with this plan. [facility] General Date/Time Provider Initiated Documentation: 04/17/22 22:52. Limitations to Documentation: no limitations. Information obtained by: patient, family and RN notes reviewed. History of Present Illness 66 year old M presents to the emergency department with the chief complaint of scalp laceration, described as moderate, with intensity rated at 9. Quality is described as aching (has generalized JACKSON but majority of pain is at the site of the laceration), and is localized to the head. Patient reports no radiation. Patient started experiencing this minute(s) and it has been constant. No relieving factors improve symptom(s), No exacerbating factors reported . Patient notes no other symptoms.. Patient did receive the following treatments prior to arrival, none Related Data Home Medications Medication Instructions Recorded Confirmed acetaminophen 500 mg tablet (Mapap 1 tab PO PRN PRN 08/07/14 04/17/22 Extra Strength) famotidine 20 mg tablet 20 mg PO BID PRN 06/22/19 04/17/22 cholecalciferol (vitamin D3) 50 50 mcg PO DAILY 02/20/20 04/17/22 mcg (2,000 unit) tablet (Vitamin D3) magnesium oxide 500 mg tablet 500 mg PO DAILY 02/20/20 04/17/22 gabapentin 300 mg capsule 300 mg PO BID #60 caps 08/27/21 04/17/22 diltiazem HCl 120 mg tablet 120 mg PO TID PRN afib #30 tab-caps 10/22/21 04/17/22 hydromorphone 2 mg tablet 2 mg PO Q4H PRN #7 tabs 01/03/22 04/17/22 (Dilaudid) metoclopramide HCl 10 mg tablet 10 mg PO Q6H PRN #7 tabs 01/03/22 04/17/22 (Reglan) tamsulosin 0.4 mg capsule (Flomax) 0.4 mg PO DAILY #6 caps 01/03/22 04/17/22 atorvastatin 20 mg tablet 20 mg PO QPM #90 tabs 01/19/22 04/17/22 apixaban 5 mg tablet (Eliquis) 5 mg PO BID #180 tabs 03/08/22 04/17/22 diltiazem HCl 120 mg See Rx Instructions .Route 03/30/22 04/17/22 capsule,extended release 24 hr .COMPLEX #90 caps spironolactone 50 mg tablet 100 mg PO DAILY #180 tabs 04/01/22 04/17/22 (Aldactone) Previous Rx's Medication Instructions Recorded gabapentin 300 mg capsule 300 mg PO BID #60 caps 08/27/21 diltiazem HCl 120 mg tablet 120 mg PO TID PRN afib #30 tab-caps 10/22/21 hydromorphone 2 mg tablet 2 mg PO Q4H PRN #7 tabs 01/03/22 (Dilaudid) metoclopramide HCl 10 mg tablet 10 mg PO Q6H PRN #7 tabs 01/03/22 (Reglan) tamsulosin 0.4 mg capsule (Flomax) 0.4 mg PO DAILY #6 caps 01/03/22 atorvastatin 20 mg tablet 20 mg PO QPM #90 tabs 01/19/22 apixaban 5 mg tablet (Eliquis) 5 mg PO BID #180 tabs 03/08/22 diltiazem HCl 120 mg See Rx Instructions .Route 03/30/22 capsule,extended release 24 hr .COMPLEX #90 caps spironolactone 50 mg tablet 100 mg PO DAILY #180 tabs 04/01/22 (Aldactone) Allergies Allergy/AdvReac Type Severity Reaction Status Date / Time lisinopril AdvReac Intermediate COUGH Verified 04/17/22 22:32 General Stated Complaint: HeadInjury GERARDO: 3 Review of Systems Constitutional Constitutional: Reports as per HPI, Denies chills, Denies fever(s) and Reports headache(s) Eyes Eyes: Reports as per HPI, Denies change in vision and Denies loss of vision ENT Ears, Nose, Mouth, and Throat: Denies dizziness and Reports headache(s) Cardiovascular Cardiovascular: Denies syncope and Denies dyspnea Respiratory Respiratory: Reports as per HPI and Denies dyspnea Gastrointestinal Gastrointestinal: Reports as per HPI, Denies nausea and Denies vomiting Musculoskeletal Musculoskeletal: Reports as per HPI and Denies numbness Integumentary/Breasts Skin/Breast: Reports as per HPI Neurologic Neurologic: Reports as per HPI, Denies confusion, Denies dizziness, Denies syncope, Reports headache(s), Denies localized weakness, Denies loss of vision, Denies numbness, Denies sensory deficit and Denies paresthesias Psychiatric Psychiatric: Denies confusion PFSH All Active Problems (Updated 04/18/22 @ 00:48 by GILES Marino) Laceration of scalp (Acute) Ischial bursitis of left side (Acute) Abnormal LFTs (Acute) Piriformis syndrome of left side (Acute) Diaphoresis (Acute) Arthralgia (Acute) Left leg pain (Acute) Left sided abdominal pain (Acute) Low back pain (Acute) Left flank pain (Acute) Paresthesias (Acute) Essential hypertension (Chronic) Generalized osteoarthrosis (Chronic) DJD-C spine; Gastroesophageal reflux disease (Chronic) Hyperlipidemia (Chronic) Obesity (Chronic) Paroxysmal atrial fibrillation (Chronic 04/16/16) Status post Marcia fundoplication (Acute) History of hemorrhoidectomy (Acute) and repair of anal fissure TIA (transient ischemic attack) (Acute) Left facial and left distal leg numbness and weakness lasting about 30 minutes Thoracic back pain (Acute) Pre-diabetes (Acute) Ventricular tachycardia (Chronic) Left lumbar radiculopathy (Acute) Atrial fibrillation with rapid ventricular response (Acute 03/25/00) Varicose veins of lower extremity (Chronic) Peripheral neuralgia (Chronic) Disorder characterized by back pain (Chronic) Family History Mother Uterine cancer Father , AGE 67 Essential hypertension Heart disease Hyperlipidemia Brother No problems noted. Maternal Grandfather , AGE 89 No problems noted. Paternal Grandfather , AGE 61 Heart disease Maternal Grandmother , AGE 93 No problems noted. Paternal Grandmother , AGE 61 Heart disease Stroke Brother Essential hypertension Heart disease STENT Brother Essential hypertension Hyperlipidemia Son No problems noted. Son No problems noted. Daughter No problems noted. 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 Pets and animals: Yes Pets and animals: cat(s) Sexually active: Yes Do you think of yourself as: straight/heterosexual Current gender identity: male What is your relationship status?: How often do you talk on the phone with friends or family?: three or more times per week How often do you get together with friends or relatives?: once per week How often do you attend sikhism or taoism services?: 4 or more times per year Do you belong to any clubs or organized social groups?: yes Panel score (0-1 are the most socially isolated patients): 4 What type of physical activity do you participate in: walking Duration: 60-90 minutes/day Frequency: 5-6 times per week Rosemary/Baptist: Shinto Special rosemary needs: No Seatbelt use: always Helmet use: Yes Helmet use: always Drive intox or ride w/intox superintendent drivers: No Do you feel safe at home: Yes Do you feel safe in your relationship?: Yes Exam Const General: cooperative, healthy appearing, comfortable, no acute distress and well developed Nutritional Appearance: average body habitus and well nourished Orientation: alert and awake [facility] Head: no palpable skull fracture, no acral cyanosis, no Shine's sign, no contusions, laceration, no occipital foramen tenderness, no palpable skull fracture, no raccoon eyes and scalp tenderness Head images: 1. Area of laceration. Just out of hair line. no signficant active bleeding but no clot formation is visible at this time. No surrounding erythema, warmth, drainage. No signficant swelling, no ecchymosis. No palpable skull fracture. wound is into subQ, galea remains covered/intact. Ears: hearing grossly normal bilaterally and external ears normal Face and sinus: normal facial exam, sinuses nontender and no tenderness Eyes General: appearance normal, both eyes and all related structures Alignment and Position: alignment normal and position normal Pupils: PERRL EOM: EOM intact bilaterally Neck Neck: normal visual inspection and full ROM Resp Effort & Inspection: normal respiratory effort, able to speak in complete sentences and no respiratory distress Cardio Rate: regular rate Rhythm: regular rhythm Skin Trauma: laceration (to scalp as above, 3.5cm, linear) Neuro General: patient alert and patient awake Cranial Nerves: CN's II-XI intact bilaterally Cognition: normal cognition Speech: speech normal Gait: normal gait Motor: muscle tone normal throughout Sensory Exam: no sensory deficits noted Psych Appearance: grossly normal and well kempt Mental Status: mental status grossly normal Speech and Movement: speech and movement normal Course Vital Signs Vital signs: Vital Signs Temperature 36.3 C L 04/17/22 22:29 Pulse 78 04/17/22 22:29 Respiratory Rate 16 04/17/22 22:29 Blood Pressure 146/87 H 04/17/22 22:29 Pulse Oximetry 96 04/17/22 22:29 Temperature 36.3 C L 04/17/22 22:29 Temperature Source Temporal Artery Scan 04/17/22 22:29 Pulse 78 04/17/22 22:29 Respiratory Rate 16 04/17/22 22:29 Respiratory Effort Non-Labored 04/17/22 22:36 Respiratory Depth Normal 04/17/22 22:36 Respiratory Pattern Normal 04/17/22 22:36 Blood Pressure 146/87 H 04/17/22 22:29 Blood Pressure Position Sitting 04/17/22 22:29 Pulse Oximetry 96 04/17/22 22:29 Oxygen Delivery Method Room Air 04/17/22 22:29 Oxygen Flow Rate 0 04/17/22 22:29 Pain Level 9 04/17/22 22:29 Procedures Laceration Laceration 1: Site: scalp Side (If applicable): left Size (cm): 3.5 Description: linear Depth: simple, single layer Local Anesthetic: Lidocaine 1% and with Epi Amount of anesthesia used (mL): 6 Pre-repair: wound explored, irrigated extensively and deep structures intact Skin layer closed with: other (prolene) Size (cm): 6-0 Number of sutures: 2 Technique: simple, interrupted (x1 at medial end) and running (running locking)
[2022-04-18] MEDS: Acetaminophen 500 MG TAB 1000 MG PO (00:34)
--- NOTE | 2022-04-18 00:39 | DI.VRAD_ITS ---
PROCEDURE INFORMATION: Exam: CT Head Without Contrast Exam date and time: 04/18/2022 12:02 AM Age: 66 years old Clinical indication: Other: Head injury, anticoagulated TECHNIQUE: Imaging protocol: Computed tomography of the head without contrast. COMPARISON: CT HEAD WO CNTRST 06/20/2019 12:37 PM FINDINGS: Brain: No acute intracranial hemorrhage, mass-effect, midline shift, or extra-axial collection is seen. The rivera white matter differentiation appears preserved. Cerebral ventricles: The ventricular system and basilar cisterns appear appropriate in size and configuration. Paranasal sinuses: There is minimal mucoperiosteal thickening in the paranasal sinuses but no air-fluid levels. Mastoid air cells: The mastoid air cells appear well-aerated. Auditory system: The middle ear cavities appear clear. Orbital cavities: The globes and intraorbital structures appear grossly intact. Bones/joints: The bony calvarium appears intact. No depressed skull fracture is seen. Soft tissues: There is a small left frontal scalp contusion. IMPRESSION: No acute intracranial hemorrhage or depressed skull fracture. Dictated and Authenticated by: Rl Craven MD. Ordering:JESUS Shetty MD
== END 2022-04-18 01:03 | disposition home or self-care (01) ==
PROVIDERS: Emergency Provider Physician Assistant; PCP Family Medicine
DX: S01.01XA Laceration without foreign body of scalp, initial encounter (principal); W22.09XA Striking against other stationary object, initial encounter; Y93.01 Activity, walking, marching and hiking; Z23 Encounter for immunization
CPT/HCPCS: 12002; 90471; 99284; 70450; 99282

== ENCOUNTER 2022-05-31 03:06 | Outpatient (CLI) | payer BC, SELFPAY ==
[2022-05-31 12:59] LABS: ALT 35 U/L (16-63); AST 35 U/L (15-37); Albumin 3.9 g/dL (3.4-5.0); Alkaline Phosphatase 134 U/L (46-116); Bilirubin, Direct 0.1 mg/dL (0.0-0.2); Bilirubin, Total 0.7 mg/dL (0.2-1.0); Total Protein 7.4 g/dL (6.4-8.2)
== END 2022-05-31 03:07 | disposition home or self-care (01) ==
LOC: LOS 03:06
PROVIDERS: PCP Family Medicine; Visit Provider Family Medicine
DX: R79.89 Other specified abnormal findings of blood chemistry (principal)
CPT/HCPCS: 36415; 80076

== ENCOUNTER 2022-08-18 09:05 | Outpatient (CLI) | payer BC, SELFPAY ==
[2022-08-18 15:25] LABS: CREATININE 1.5 mg/dL (0.70-1.30); Estimated GFR 51.03 (mL/min/1.73m2)
[2022-08-19 14:33] LABS: Hemoglobin A1C 5.6 % (<5.7)
== END 2022-08-18 09:06 | disposition home or self-care (01) ==
LOC: LOS 09:05
PROVIDERS: PCP Family Medicine; Referring Provider Family Medicine; Visit Provider Family Medicine
DX: I10 Essential (primary) hypertension (principal); R73.9 Hyperglycemia, unspecified
CPT/HCPCS: 36415; 82565; 83036

== ENCOUNTER 2023-04-18 23:39 | Emergency (ER) | payer BC, MEDICARE, SELFPAY ==
--- NOTE | 2023-04-18 23:30 | RT.EKG_ITS ---
APPROVED REPORT Exam: Resting ECG Reason for Exam: A-Fib Patient Location: E HR:129 bpm ECG Measurements Heart Rate 129 AXIS PA [id number] P [id number] QRSd 83 QRS -4 QT 285 T 176 QTc 417 Conclusion Atrial fibrillation...V-rate 79-169, irreg A-activity Ventricular premature complex...V complex w/ short R-R interval Repol abnrm suggests ischemia, diffuse leads...ST-T neg, ant/lat/inf
[2023-04-18 23:42] VITALS: BP 140/102; PULSE 97; RESP 16; TEMP 36.6; O2SAT 97
--- NOTE | 2023-04-18 23:45 | RT.EKG_ITS ---
APPROVED REPORT Exam: Resting ECG Reason for Exam: AF RVR Patient Location: E HR:87 bpm ECG Measurements Heart Rate 87 AXIS ME [id number] P [id number] QRSd 80 QRS -2 QT 380 T 31 QTc 458 Conclusion Atrial fibrillation...V-rate 64- 86, irreg A-activity
[2023-04-18 23:47] VITALS: O2SAT 97
[2023-04-18 23:50] VITALS: PULSE 135; RESP 15; O2SAT 97
[2023-04-18 23:59] VITALS: RESP 20; O2SAT 97
[2023-04-19] VITALS (105 sets, daily range): BP systolic 92–135; BP diastolic 57–95; PULSE 50–140; RESP 10–27; O2SAT 94–98
[2023-04-19] MEDS: Normal Saline 1,000 ML 1000 ML IV ×2 (00:01→01:54)
--- NOTE | 2023-04-19 00:01 | DI.RAD_ITS ---
Exam(s) XR PORTABLE CHEST AP EXAM: XR PORTABLE CHEST AP CLINICAL HISTORY: AF with RVR TECHNIQUE: 2D digital imaging was performed of the chest. One image was obtained. An AP view was ob tained. COMPARISON: CR PORTABLE CHEST ONE VIEW from 04/10/2016 FINDINGS: MEDIASTINUM: Normal. HEART: Normal. PULMONARY VASCULATURE: Normal. LUNGS: Clear. PLEURAL SPACE: No pleural effusion or pneumothorax. BONE:Within normal limits for the patient's age. OTHER FINDINGS:Normal. IMPRESSION: No acute pulmonary findings. DATA REPOSITORY: RADIATION DOSE DELIVERED:
[2023-04-19] MEDS: dilTIAZem 25 MG/5 ML VIAL (00:14)
[2023-04-19 00:18] LABS: Abs Immature Grans 0.02 10^3/uL (0.0-0.06); Absolute Basophil Count 0.06 10^3/uL (0.0-0.2); Absolute Lymphocyte Count 2.15 10^3/uL (1.2-3.4); Absolute Monocyte Count 0.93 10^3/uL (0.1-0.8); Absolute Neutrophil Count 6.32 10^3/uL (1.2-6.7); Basophils % 0.6; HCT 45.6 % (40.0-50.0); HGB 15.4 g/dL (13.5-17.5); Immature Grans % 0.2; Lymphocytes % 22.7; MCH 29.2 pg (27.0-33.0); MCHC 33.8 % (32.0-36.0); MCV 86 fL (80-95); MPV 9.5 fL (8.0-11.0); Monocytes % 9.8; Neutrophils % 66.7; Platelet Count 243 10^3/uL (130-400); RBC 5.28 10^6/uL (4.36-5.78); RDW 11.9 % (11.8-14.1); RDW-SD 38.4 fL; WBC 9.48 10^3/uL (4.4-10.8)
[2023-04-19 00:38] LABS: ALT 37 U/L (16-63); AST 22 U/L (15-37); Albumin 3.7 g/dL (3.4-5.0); Alkaline Phosphatase 141 U/L (46-116); Anion Gap 8.1 mmol/L (3-11); BUN 17 mg/dL (7-18); Bilirubin, Total 0.3 mg/dL (0.2-1.0); CO2 26.9 mmol/L (21.0-32.0); CREATININE 1.3 mg/dL (0.70-1.30); Calcium 9.3 mg/dL (8.5-10.1); Chloride 102 mmol/L (98-107); Estimated GFR 60.21 (mL/min/1.73m2); Glucose 159 mg/dL (74-106); Magnesium 2.2 mg/dL (1.8-2.4); Sodium 137 mmol/L (136-145); Total Protein 7.4 g/dL (6.4-8.2); Troponin I < 50 ng/L (<or=60)
--- NOTE | 2023-04-19 00:42 | ED.GENADUL_ITS ---
Discharge Plan Disposition Patient Disposition: Home Discharge Details Clinical Impression: Paroxysmal atrial fibrillation Primary Care Provider: Sergey Menjivar ED Provider: Monika Ruelas Home Meds and New Rx's Prescriptions: New diltiazem HCl 180 mg capsule,extended release 24hr 180 mg PO QAM Qty: 30 3RF Discontinued diltiazem HCl 120 mg capsule,extended release 24hr See Rx Instructions .ROUTE .COMPLEX Qty: 90 3RF Dose Instruction: take 1 capsule by mouth once daily Rx Instructions: take 1 capsule by mouth once daily No Action magnesium oxide 500 mg tablet 500 mg PO DAILY cholecalciferol (vitamin D3) [Vitamin D3] 50 mcg (2,000 unit) tablet 50 mcg PO DAILY spironolactone [Aldactone] 50 mg tablet 50 mg PO DAILY Qty: 180 3RF Rx Instructions: dose reduce (gynecomastia) 08/18/22 famotidine 20 mg tablet 20 mg PO BID PRN Patient Comments: Pt reports no longer taking 10/21/21 diltiazem HCl 120 mg tablet 120 mg PO TID PRN (Reason: afib) Qty: 30 2RF Rx Instructions: Take for atrial fibrillation with heart rate greater than 130 atorvastatin 20 mg tablet 20 mg PO QPM Qty: 90 3RF Eliquis 5 mg tablet 5 mg PO BID Qty: 180 3RF acetaminophen [Mapap Extra Strength] 500 MG tablet 1 tab PO PRN PRN Discharge Instructions Instructions: A-fib (Atrial Fibrillation) (ED) Additional Instructions: Hold your aldactone this AM and begin taking again on Wed. AM. Take your Diltiazem 120 mg later this afternoon and then restart the 180 mg on Wed. AM. Check in with your managed services consultant or PCP later today. Return to ED for increased heart rate (over 120 beats per minute), chest pain, any other concerns. Medical Decision Making Patient was reevaluated several times and has no complaints. His heart rhythm still shows atrial fibrillation though at a slower rate. His blood pressure d ropped but he is asymptomatic with this. Of note, the patient was offered cardioversion on arrival but declined due to things he had been told in the past. I did tell him that uses it candidate due to being anticoagulated on Eliquis. I also told him that about 90% of cardioversion usually effective. She states the longest has been in atrial usual for is about 24 hours. I will say that when he is going slowly he does not know whether or not he is in afib. Patient sees a managed services consultant down at [facility] and will plan on seeing him in follow up. Right now he is waiting for a 3 AM troponin due to the rate related changes when he was going faster. Both he and his do know why they are waiting. Medical Records Medical records reviewed: Yes I reviewed the patient's medical records. Imaging Data Radiologic Study: Radiologist's impression: CXR: NAD Lab Data Lab results reviewed: Yes I reviewed the patient's lab results. Lab results narrative: WNL ECG Data Attestation: I personally reviewed and interpreted this ECG (s) as follows: (1. Atrial fibrillation at a rate of 130, PVC, ST depression c/w rate related changes 2. Atrial fibrillation, ST depression has resolved) HPI General Date/Time Provider Initiated Documentation: 04/18/23 23:59 . HPI Narrative: This 60-year-old male patient with a history of atrial fibrillation presents with palpitations. The patient states this began several hours ago. He states that his heart starts going fast and he can feel it pounding in his chest. He did take an extra 120 mg extended release diltiazem at home. Because his heart rate was fast he decided to come to the ED. He has had no fever, chills, or URI symptoms. There is no chest pain or difficulty breathing. There is no pedal edema or calf pain. Related Data Home Medications Medication Instructions Recorded Confirmed acetaminophen 500 mg tablet (Mapap 1 tab PO PRN PRN 08/07/14 08/18/22 Extra Strength) famotidine 20 mg tablet 20 mg PO BID PRN 06/22/19 08/18/22 cholecalciferol (vitamin D3) 50 50 mcg PO DAILY 02/20/20 08/18/22 mcg (2,000 unit) tablet (Vitamin D3) magnesium oxide 500 mg tablet 500 mg PO DAILY 02/20/20 08/18/22 diltiazem HCl 120 mg tablet 120 mg PO TID PRN afib #30 tab-caps 10/22/21 08/18/22 atorvastatin 20 mg tablet 20 mg PO QPM #90 tabs 04/19/22 08/18/22 apixaban 5 mg tablet (Eliquis) 5 mg PO BID #180 tabs 06/02/22 08/18/22 spironolactone 50 mg tablet 50 mg PO DAILY #180 tabs 08/18/22 08/18/22 (Aldactone) diltiazem HCl 180 mg 180 mg PO QAM #30 caps 04/19/23 capsule,extended release 24 hr Previous Rx's Medication Instructions Recorded diltiazem HCl 120 mg tablet 120 mg PO TID PRN afib #30 tab-caps 10/22/21 atorvastatin 20 mg tablet 20 mg PO QPM #90 tabs 04/19/22 apixaban 5 mg tablet (Eliquis) 5 mg PO BID #180 tabs 06/02/22 spironolactone 50 mg tablet 50 mg PO DAILY #180 tabs 08/18/22 (Aldactone) diltiazem HCl 180 mg 180 mg PO QAM #30 caps 04/19/23 capsule,extended release 24 hr Allergies Allergy/AdvReac Type Severity Reaction Status Date / Time lisinopril AdvReac Intermediate COUGH Verified 04/18/23 16:11 General Stated Complaint: Palpitatns GERARDO: 3 Review of Systems Constitutional Constitutional: Denies chills, Denies fever(s), Denies headache(s) and Denies weakness Eyes Eyes: Denies diplopia and Reports other (no redness) ENT Ears, Nose, Mouth, and Throat: Denies otalgia, Denies headache(s), Denies nasal congestion, Denies nasal discharge, Denies neck pain and Denies sore throat Cardiovascular Cardiovascular: Denies chest pain, Reports palpitations and Denies dyspnea Respiratory Respiratory: Denies cough and Denies dyspnea Gastrointestinal Gastrointestinal: Denies abdominal pain, Denies diarrhea, Denies nausea and Denies vomiting Genitourinary Genitourinary: Denies difficulty urinating and Denies dysuria Musculoskeletal Musculoskeletal: Denies myalgias, Denies muscle weakness, Denies neck pain, Denies numbness and Reports other (edema) Integumentary/Breasts Skin/Breast: Denies change in pigmentation and Denies rash Neurologic Neurologic: Denies headache(s), Denies numbness and Denies weakness Endocrine Endocrine: Reports palpitations PFSH All Active Problems (Updated 04/19/23 @ 03:41 by Monika Ruelas MD) CAD (coronary artery disease) (Chronic) Insomnia (Acute) Ischial bursitis of left side (Acute) Abnormal LFTs (Acute) Piriformis syndrome of left side (Acute) Diaphoresis (Acute) Arthralgia (Acute) Left leg pain (Acute) Left sided abdominal pain (Acute) Low back pain (Acute) Left flank pain (Acute) Paresthesias (Acute) Essential hypertension (Chronic) Generalized osteoarthrosis (Chronic) DJD-C spine; Gastroesophageal reflux disease (Chronic) Hyperlipidemia (Chronic) Obesity (Chronic) Paroxysmal atrial fibrillation (Chronic 04/16/16) Status post Marcia fundoplication (Acute) History of hemorrhoidectomy (Acute) and repair of anal fissure TIA (transient ischemic attack) (Acute) Left facial and left distal leg numbness and weakness lasting about 30 minutes Thoracic back pain (Acute) Pre-diabetes (Acute) Ventricular tachycardia (Chronic) Left lumbar radiculopathy (Acute) Atrial fibrillation with rapid ventricular response (Acute 03/25/00) Varicose veins of lower extremity (Chronic) Peripheral neuralgia (Chronic) Disorder characterized by back pain (Chronic) Family History Mother Uterine cancer Father , AGE 67 Essential hypertension Heart disease Hyperlipidemia Brother No problems noted. Maternal Grandfather , AGE 89 No problems noted. Paternal Grandfather , AGE 61 Heart disease Maternal Grandmother , AGE 93 No problems noted. Paternal Grandmother , AGE 61 Heart disease Stroke Brother Essential hypertension Heart disease STENT Brother Essential hypertension Hyperlipidemia Son No problems noted. Son No problems noted. Daughter No problems noted. 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 Pets and animals: Yes Pets and animals: cat(s) Sexually active: Yes Do you think of yourself as: straight/heterosexual Current gender identity: male What is your relationship status?: How often do you talk on the phone with friends or family?: once per week How often do you get together with friends or relatives?: once per week How often do you attend alevism or sabianism services?: 4 or more times per year Do you belong to any clubs or organized social groups?: yes Panel score (0-1 are the most socially isolated patients): 3 What type of physical activity do you participate in: walking Duration: 60-90 minutes/day Frequency: 5-6 times per week Rosemary/Orthodoxy: Amish Special rosemary needs: No Seatbelt use: always Helmet use: Yes Helmet use: always Drive intox or ride w/intox 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 Do you feel safe at home: Yes Do you feel safe in your relationship?: Yes Exam Const General: no acute distress, well developed, well groomed and not in acute distress Nutritional Appearance: well nourished Orientation: alert and oriented x3 HENMT Head: normocephalic and atraumatic Ears: external ears normal Mouth: oropharynx normal and moist mucous membranes Throat: posterior oropharynx normal Eyes Conjunctivae: conjunctivae normal Neck Neck: full ROM and supple Chest Chest: normal inspection of the chest Resp Effort & Inspection: normal respiratory effort Auscultation: clear to auscultation bilaterally Cardio Rate: regular rate Rhythm: regular rhythm Heart Sounds: no murmurs and no rubs GI Inspection: normal to inspection Palpation: soft, nontender and other (non distended) Auscultation: normal bowel sounds Skin General skin exam: no rashes or lesions noted and other (pink, warm, dry) Neuro General: patient alert, patient awake and patient oriented x3 Speech: speech normal Motor: other (FRANKS) Sensory Exam: no sensory deficits noted Extrem General: normal to inspection, full ROM and pedal edema present Psych Mental Status: mental status grossly normal Speech and Movement: speech and movement normal Affect: normal affect Course Vital Signs Vital signs: Vital Signs Temperature 36.6 C 04/18/23 23:42 Pulse 97 H 04/18/23 23:42 Respiratory Rate 16 04/18/23 23:42 Blood Pressure 140/102 H 04/18/23 23:42 Pulse Oximetry 97 04/18/23 23:42 Temperature 36.6 C 04/18/23 23:42 Pulse 88 04/19/23 00:17 Pulse 85 04/19/23 00:20 Respiratory Rate 12 09/19/23 00:20 Respiratory Effort Normal 04/18/23 23:46 Blood Pressure 135/75 04/19/23 00:17 Blood Pressure Mean 89 04/19/23 00:17 Pulse Oximetry 95 04/19/23 00:20 Oxygen Delivery Method Room Air 04/18/23 23:42 Oxygen Flow Rate 0 04/18/23 23:42 Pain Level 0 04/18/23 23:42 Lab/Test Results Lab/Test Results: Laboratory Tests Range/Units 04/19/23 04/19/23 00:04 00:04 WBC (4.4-10.8) 10^3/uL 9.48 RBC (4.36-5.78) 10^6/uL 5.28 Hgb (13.5-17.5) g/dL 15.4 Hct (40.0-50.0) % 45.6 MCV (80-95) fL 86 MCH (27.0-33.0) pg 29.2 MCHC (32.0-36.0) % 33.8 RDW (11.8-14.1) % 11.9 Plt Count (130-400) 10^3/uL 243 MPV (8.0-11.0) fL 9.5 Immature Gran % 0.2 Neutrophils % 66.7 Lymphocytes % 22.7 Monocytes % 9.8 Eosinophils % 0.0 Basophils % 0.6 Nucleated RBC % (0.0-0.3) % 0.0 Absolute Neutrophils (1.2-6.7) 10^3/uL 6.32 Absolute Lymphocytes (1.2-3.4) 10^3/uL 2.15 Absolute Monocytes (0.1-0.8) 10^3/uL 0.93 H Absolute Eosinophils (0.0-0.7) 10^3/uL 0.00 Absolute Basophils (0.0-0.2) 10^3/uL 0.06 Sodium (136-145) mmol/L 137 Potassium (3.5-5.1) mmol/L 4.0 Chloride (98-107) mmol/L 102 Carbon Dioxide (21.0-32.0) mmol/L 26.9 Anion Gap (3-11) mmol/L 8.1 BUN (7-18) mg/dL 17 Creatinine (0.70-1.30) mg/dL 1.3 Est GFR (CKD-EPI 2020) (mL/min/1.73m2) 60.21 Glucose (74-106) mg/dL 159 H Calcium (8.5-10.1) mg/dL 9.3 Magnesium (1.8-2.4) mg/dL 2.2 Total Bilirubin (0.2-1.0) mg/dL 0.3 AST (15-37) U/L 22 ALT (16-63) U/L 37 Alkaline Phosphatase (46-116) U/L 141 H Troponin I (<or=60) ng/L < 50 Total Protein (6.4-8.2) g/dL 7.4 Albumin (3.4-5.0) g/dL 3.7
--- NOTE | 2023-04-19 01:02 | DI.VRAD_ITS ---
PROCEDURE INFORMATION: Exam: XR Chest Exam date and time: 04/19/2023 12:16 AM Age: 67 years old Clinical indication: Other: Af with rvr TECHNIQUE: Imaging protocol: Radiologic exam of the chest. Views: 1 view. Total images: 1 COMPARISON: CT ABDOMEN PELVIS W 01/03/2022 8:53 PM FINDINGS: Lungs: No consolidation. No vascular congestion. Pulmonary lucita: Unremarkable contours. Pleural spaces: No pleural effusion. No pneumothorax. Heart/Mediastinum: Unremarkable contours. No cardiomegaly. Vasculature: Tortuous aorta. Bones/joints: Unremarkable. Intraperitoneal space: Visualized upper abdomen is unremarkable. IMPRESSION: No acute findings. Dictated and Authenticated by: Eric Bentley MD. Ordering:KIM Frank MD
[2023-04-19 03:32] LABS: Troponin I < 50 ng/L (<or=60)
--- NOTE | 2023-04-19 07:36 | NUR.NOTE ---
Accessed pt chart to determine EKG orders. Duplicate order was cancelled. Nursing Note:
== END 2023-04-19 04:10 | disposition home or self-care (01) ==
PROVIDERS: Emergency Provider Emergency Medicine; PCP Family Medicine
DX: I48.0 Paroxysmal atrial fibrillation (principal); I25.10 Atherosclerotic heart disease of native coronary artery without angina pectoris; I10 Essential (primary) hypertension; Z86.73 Personal history of transient ischemic attack (TIA), and cerebral infarction without residual deficits; Z79.01 Long term (current) use of anticoagulants; Z79.899 Other long term (current) drug therapy
CPT/HCPCS: 36415; 80053; 93005; 96361; 96374; 99284; 71045; 83735; 84484; 85025; 93010

== ENCOUNTER 2023-08-23 08:49 | Outpatient (CLI) | payer BC, SELFPAY ==
[2023-08-23 13:10] LABS: Potassium 4.4 mmol/L (3.5-5.1)
[2023-08-23 14:24] LABS: Hemoglobin A1C 5.5 % (<5.7)
== END 2023-08-23 08:50 | disposition home or self-care (01) ==
LOC: LOS 08:49
PROVIDERS: PCP Family Medicine; Referring Provider Family Medicine; Visit Provider Family Medicine
DX: E11.51 Type 2 diabetes mellitus with diabetic peripheral angiopathy without gangrene (principal); I70.209 Unspecified atherosclerosis of native arteries of extremities, unspecified extremity; I10 Essential (primary) hypertension
CPT/HCPCS: 36415; 83036; 84132

== ENCOUNTER 2024-08-23 08:13 | Outpatient (CLI) | payer BC, SELFPAY ==
[2024-08-23 08:08] LABS: HCT 46.1 % (40.0-50.0); HGB 15.2 g/dL (13.5-17.5); MCH 29.2 pg (27.0-33.0); MCV 89 fL (80-95); MPV 9.2 fL (8.0-11.0); Platelet Count 219 10^3/uL (130-400); RDW 11.8 % (11.8-14.1); RDW-SD 38.1 fL; WBC 5.68 10^3/uL (4.4-10.8)
[2024-08-23 09:01] LABS: ALT 22 U/L (16-63); AST 20 U/L (15-37); Albumin 3.9 g/dL (3.4-5.0); Alkaline Phosphatase 119 U/L (46-116); Anion Gap 3.6 mmol/L (3-11); BUN 15 mg/dL (7-18); Bilirubin, Total 0.72 mg/dL (0.2-1.0); CO2 33.4 mmol/L (21.0-32.0); CREATININE 1.3 mg/dL (0.70-1.30); Calcium 9.1 mg/dL (8.5-10.1); Chloride 104 mmol/L (98-107); Estimated GFR 59.84 (mL/min/1.73m2); Glucose 102 mg/dL (74-106); Potassium 4.3 mmol/L (3.5-5.1); Sodium 141 mmol/L (136-145); Total Protein 7.2 g/dL (6.4-8.2)
[2024-08-28 18:15] LABS: Vitamin B12 368 pg/mL (211-911)
[2024-08-31 09:14] LABS: 1,25-Dihydroxyvitamin D See Comments pg/mL
== END 2024-08-23 08:14 | disposition home or self-care (01) ==
LOC: LBO 08:13
PROVIDERS: PCP Family Medicine; Visit Provider Family Medicine
DX: R79.89 Other specified abnormal findings of blood chemistry (principal); R10.9 Unspecified abdominal pain; R53.83 Other fatigue
CPT/HCPCS: 36415; 80053; 85027; 82607; 82652